=== PATIENT | female | born 1990 | race Caucasian/White ===

== ENCOUNTER 2017-05-28 10:25 | Emergency (ER) | payer SELFPAY ==
[2017-05-28 10:33] VITALS: BP 116/68
[2017-05-28] MEDS ORDERED: NORMAL SALINE 1000 ML 1,000 ML IV ONE (11:41)
[2017-05-28] MEDS ORDERED: ONDANSETRON HCL INJ/PF 4 MG/2 ML SDV IV ONE (11:41)
--- NOTE | 2017-05-28 11:43 | ER Document Report ---
ED Syncope and Near Syncope - General Chief Complaint: Fainting Stated Complaint: COUGH Time Seen by Provider: 05/28/17 10:58 Mode of Arrival: Ambulatory Information source: Patient Notes: Presents complaining of cough for the past 10 days. Patient states that she got up this morning felt a little dizzy, started to cough and then passed out. Patient states that after she woke up she vomited one time. Patient does report fever of 1042 days ago but denies any fever since then. Patient denies any recent immobilization, travel, history of DVT or PE. Complains of headache pain only with coughing. Patient denies any headache pain at present. TRAVEL OUTSIDE OF THE [place] IN LAST 30 DAYS: No - HPI Patient complains to provider of: Fainting Episode witnessed (by whom): No Symptoms prior to episode: Fever - Physical, Nausea/vomiting. No: Abdominal pain, Back pain, Chest pain, Diarrhea Position/Activity at time of episode: Standing Quality of pain: Achy Pain Level: 3 Context: Lost consciousness. denies: Recent seizures, Recent travel Current symptoms: Fever - 2 days ago, Headache - only with coughing, Vomiting. denies: Back pain, Chest pain, Chills Similar symptoms previously: Yes Recently seen / treated by doctor: No - Related Data Allergies/Adverse Reactions: No Known Allergies Allergy (Verified 05/28/17 10:31) Past Medical History - General Information source: Patient - Social History Smoking Status: Never Smoker Frequency of alcohol use: None Drug Abuse: None Occupation: beach attendant Family History: Reviewed & Not Pertinent - Medical History Medical History: Negative - Past Medical History Cardiac Medical History: Denies: Hx DVT, Hx Pulmonary Embolism Renal/ Medical History: Denies: Hx Peritoneal Dialysis Past Surgical History: Reports: Hx Gynecologic Surgery - LEEP procedure Review of Systems - Review of Systems Constitutional: Fever - 2 days ago EENT: No symptoms reported Cardiovascular: Syncope. denies: Chest pain Respiratory: Cough, Sputum Gastrointestinal: Nausea, Vomiting. denies: Abdominal pain Genitourinary: No symptoms reported. denies: Dysuria Female Genitourinary: No symptoms reported Musculoskeletal: No symptoms reported. denies: Back pain Skin: No symptoms reported Hematologic/Lymphatic: No symptoms reported Neurological/Psychological: Headaches - only with coughing Physical Exam - Vital signs Vitals: Temp Pulse Resp BP Pulse Ox 98.6 F 77 14 116/68 99 08/03/17 10:31 05/28/17 10:31 05/28/17 10:31 05/28/17 10:31 05/28/17 10:31 - General General appearance: Appears well, Alert In distress: None - HEENT Head: Normocephalic, Atraumatic Eyes: Normal Conjunctiva: Normal Eyelashes: Normal Ears: Normal External canal: Normal Tympanic membrane: Normal Nasal: Normal Mouth/Lips: Normal Mucous membranes: Normal Pharynx: Normal. No: Exudate, Potential airway comprom. Neck: Normal, Supple. No: Lymphadenopathy - Respiratory Respiratory status: No respiratory distress Chest status: Nontender Breath sounds: Nonproductive cough, Rhonchi - clears with cough Chest palpation: Normal - Cardiovascular Rhythm: Regular Heart sounds: S1 appreciated, S2 appreciated Murmur: No - Back Back: Normal, Nontender - Extremities General upper extremity: Normal inspection, Normal ROM General lower extremity: Normal inspection, Normal ROM - Neurological Neuro grossly intact: Yes Cognition: Normal Moshe Coma Scale Eye Opening: Spontaneous Moshe Coma Scale Verbal: Oriented [place] Coma Scale Motor: Obeys Commands Moshe Coma Scale Total: 15 - Psychological Associated symptoms: Normal affect, Normal mood - Skin Skin Temperature: Warm Skin Moisture: Dry Course - Re-evaluation Re-evalutation: 05/28/17 13:01 Spoke with poison control regarding patient's use of anavar (anabolic steroid) presentation with complaint of syncope. States that this should not cause syncope and that we should look for other causes 05/28/17 14:[address] Lou regarding patient presentation and diagnostic evaluation. Agrees with discharge plan of care. - Vital Signs Vital signs: Temp Pulse Resp BP Pulse Ox 98.6 F 77 14 116/68 99 05/28/17 10:31 05/28/17 10:31 05/28/17 11:42 05/28/17 10:31 05/28/17 10:31 - Laboratory Result Diagrams: 05/28/17 12:05 05/28/17 12:05 Laboratory results interpreted by me: 05/28/17 05/28/17 12:05 12:05 WBC 11.2 H MCV 98 H Absolute Neutrophils 8.6 H Urine Bilirubin SMALL H Labs- Entire Visit 05/28/17 05/28/17 05/28/17 12:05 12:05 12:05 WBC 11.2 H RBC 4.43 Hgb 14.7 Hct 43.4 MCV 98 H MCH 33.3 MCHC 34.0 RDW 12.5 Plt Count 210 Seg Neutrophils % 76.5 Lymphocytes % 13.3 Monocytes % 6.5 Eosinophils % 3.3 Basophils % 0.4 Absolute Neutrophils 8.6 H Absolute Lymphocytes 1.5 Absolute Monocytes 0.7 Absolute Eosinophils 0.4 Absolute Basophils 0.0 D-Dimer 0.28 Sodium 142.0 Potassium 4.0 Chloride 104 Carbon Dioxide 28 Anion Gap 10 BUN 15 Creatinine 0.86 Est GFR ( Amer) > 60 Est GFR (Non-Af Amer) > 60 Glucose 87 Calcium 9.3 Total Bilirubin 0.4 Direct Bilirubin 0.3 Indirect Bilirubin Not Reportable Neonat Total Bilirubin Not Reportable AST 34 ALT 44 Alkaline Phosphatase 74 Total Protein 7.2 Albumin 4.2 Serum HCG, Qual Urine Color Urine Appearance Urine pH Ur Specific Howard Urine Protein Urine Glucose (UA) Urine Ketones Urine Blood Urine Nitrite Urine Bilirubin Urine Urobilinogen Ur Leukocyte Esterase Urine WBC (Auto) Urine RBC (Auto) Squamous Epi Cells Auto Amorphous Sediment Auto Urine Mucus (Auto) Urine Ascorbic Acid Urine Opiates Screen Urine Methadone Screen Ur Barbiturates Screen Ur Phencyclidine Scrn Ur Amphetamines Screen U Benzodiazepines Scrn Urine Cocaine Screen U Marijuana (THC) Screen 05/28/17 05/28/17 05/28/17 12:05 12:05 12:05 WBC RBC Hgb Hct MCV MCH MCHC RDW Plt Count Seg Neutrophils % Lymphocytes % Monocytes % Eosinophils % Basophils % Absolute Neutrophils Absolute Lymphocytes Absolute Monocytes Absolute Eosinophils Absolute Basophils D-Dimer Sodium Potassium Chloride Carbon Dioxide Anion Gap BUN Creatinine Est GFR ( Amer) Est GFR (Non-Af Amer) Glucose Calcium Total Bilirubin Direct Bilirubin Indirect Bilirubin Neonat Total Bilirubin AST ALT Alkaline Phosphatase Total Protein Albumin Serum HCG, Qual NEGATIVE Urine Color YELLOW Urine Appearance SLIGHTLY-CLOUDY Urine pH 6.0 Ur Specific Howard 1.033 Urine Protein NEGATIVE Urine Glucose (UA) NEGATIVE Urine Ketones NEGATIVE Urine Blood NEGATIVE Urine Nitrite NEGATIVE Urine Bilirubin SMALL H Urine Urobilinogen NEGATIVE Ur Leukocyte Esterase NEGATIVE Urine WBC (Auto) 4 Urine RBC (Auto) 2 Squamous Epi Cells Auto 6 Amorphous Sediment Auto TRACE Urine Mucus (Auto) RARE Urine Ascorbic Acid NEGATIVE Urine Opiates Screen NEGATIVE Urine Methadone Screen NEGATIVE Ur Barbiturates Screen NEGATIVE Ur Phencyclidine Scrn NEGATIVE Ur Amphetamines Screen NEGATIVE U Benzodiazepines Scrn NEGATIVE Urine Cocaine Screen NEGATIVE U Marijuana (THC) Screen NEGATIVE 05/28/17 14:07 - Diagnostic Test Radiology reviewed: Reports reviewed - EKG Interpretation by Me EKG shows normal: Sinus rhythm Rate: Normal Rhythm: Arrthymia Discharge - Discharge Clinical Impression: Syncope Qualifiers: Syncope type: unspecified Qualified Code(s): R55 - Syncope and collapse Upper respiratory infection Qualifiers: URI type: unspecified URI Qualified Code(s): J06.9 - Acute upper respiratory infection, unspecified Condition: Stable Disposition: HOME, SELF-CARE Instructions: Acetaminophen, Upper Respiratory Illness ([facility]), Syncopal Episode ([facility]) Additional Instructions: Return immediately for any new or worsening symptoms Followup with your primary care provider, at [facility], call tomorrow to make a followup appointment Follow-up with frozen meat cutter for further evaluation, call today for an appointment. They can set you up with a holter monitor. Avoid use of heavily caffeinated/stimulant drinks Prescriptions: Albuterol Sulfate [Ventolin Hfa] 2 puff IH Q4HP PRN #17 gm PRN Reason: Benzonatate [Tessalon Perle 100 mg Capsule] 100 mg PO Q8HP PRN #20 cap PRN Reason: Naproxen [Naprosyn 250 Nmg Tablet] 1 tab PO BID #14 tablet Ondansetron HCl [Zofran 4 mg Tablet] 1 - 2 tab PO Q6 PRN #15 tablet PRN Reason: Referrals: MIGDALIA VICTORIA MD [ACTIVE STAFF] - Follow up tomorrow
[2017-05-28 12:18] LABS: ABSOLUTE EOSINOPHILS # (AUTO) 0.4 10^3/uL (0.0-0.6); ABSOLUTE LYMPHOCYTES (AUTO) 1.5 10^3/uL (0.5-4.7); ABSOLUTE MONOCYTES (AUTO) 0.7 10^3/uL (0.1-1.4); ABSOLUTE NEUT (AUTO) 8.6 10^3/uL (1.7-8.2); BASOPHILS % (AUTO) 0.4 % (0-2); EOSINOPHILS % (AUTO) 3.3 % (0-6); HEMATOCRIT 43.4 % (36.0-47.0); HEMOGLOBIN 14.7 g/dL (12.0-15.5); HGB HCT DIFFERENCE 0.7; LYMPHOCYTES % (AUTO) 13.3 % (13-45); MEAN CORPUSCULAR HEMOGLOBIN 33.3 pg (27.0-33.4); MEAN CORPUSCULAR VOLUME 98 fl (80-97); MONOCYTES % (AUTO) 6.5 % (3-13); RED BLOOD COUNT 4.43 10^6/uL (3.72-5.28); RED CELL DISTRIBUTION WIDTH 12.5 % (11.5-14.0); SEGMENTED NEUTROPHILS % (AUTO) 76.5 % (42-78); WHITE BLOOD COUNT 11.2 10^3/uL (4.0-10.5)
[2017-05-28 12:35] LABS: AMORPHOUS SEDIMENT,URINE TRACE /HPF; APPEARANCE,URINE SLIGHTLY-CLOUDY; BILIRUBIN,URINE SMALL (NEGATIVE); GLUCOSE, URINE NEGATIVE (NEGATIVE); KETONES,URINE NEGATIVE (NEGATIVE); LEUKOCYTE ESTERASE,URINE NEGATIVE (NEGATIVE); NITRITE,URINE NEGATIVE (NEGATIVE); PROTEIN,URINE NEGATIVE (NEGATIVE); URINE SPECIFIC GRAVITY 1.033; UROBILINOGEN,URINE NEGATIVE mg/dL (<2.0)
[2017-05-28 12:42] LABS: ALANINE AMINOTRANSFERASE 44 U/L (9-52); ALBUMIN 4.2 g/dL (3.5-5.0); ALKALINE PHOSPHATASE 74 U/L (38-126); ANION GAP 10 (5-19); ASPARTATE AMINO TRANSFERASE 34 U/L (14-36); BILIRUBIN,DIRECT 0.3 mg/dL (0.0-0.4); BILIRUBIN,TOTAL 0.4 mg/dL (0.2-1.3); BLOOD UREA NITROGEN 15 mg/dL (7-20); CALCIUM 9.3 mg/dL (8.4-10.2); CARBON DIOXIDE 28 mmol/L (22-30); CHLORIDE 104 mmol/L (98-107); CREATININE RESULT 0.86 mg/dL (0.52-1.25); GLUCOSE 87 mg/dL (75-110); TOTAL PROTEIN 7.2 g/dL (6.3-8.2)
--- NOTE | 2017-05-28 12:43 | RADIOLOGY REPORT (SQ) ---
EXAM DESCRIPTION: CHEST PA/LAT COMPLETED DATE/TIME: 05/28/2017 12:32 pm REASON FOR STUDY: cough COMPARISON: None. EXAM PARAMETERS: NUMBER OF VIEWS: two views TECHNIQUE: Digital Frontal and Lateral radiographic views of the chest acquired. RADIATION DOSE: NA LIMITATIONS: none FINDINGS: LUNGS AND PLEURA: No opacities, masses or pneumothorax. No pleural effusion. MEDIASTINUM AND HILAR STRUCTURES: No masses or contour abnormalities. HEART AND VASCULAR STRUCTURES: Heart normal size. No evidence for failure. BONES: No acute findings. HARDWARE: None in the chest. OTHER: No other significant finding. IMPRESSION: NO SIGNIFICANT RADIOGRAPHIC FINDING IN THE CHEST. TECHNICAL DOCUMENTATION: JOB ID: [id number] [employer]- All Rights Reserved
[2017-05-28 12:50] LABS: URINE BARBITURATES SCREEN NEGATIVE; URINE METHADONE SCREEN NEGATIVE; URINE OPIATES LOW NEGATIVE; URINE PHENCYCLIDINE SCREEN NEGATIVE
--- NOTE | 2017-05-28 13:03 | EKG REPORT ---
SEVERITY:- OTHERWISE NORMAL ECG - SINUS ARRHYTHMIA, RATE 60-83 : Confirmed by: Jacques Titus MD 28-May-2017 13:02:19
== END 2017-05-28 14:37 | disposition home or self-care (01) ==
LOC: ER 10:25
DX: J06.9 Acute upper respiratory infection, unspecified (principal); R55 Syncope and collapse; R05 Cough; R42 Dizziness and giddiness; R51 Headache
CPT/HCPCS: 93005; 99284; 96361; 96374; 36415; 87040; 84703; 85025; 80053; 81001; 80307; 85379; 71020; 93010; J2405; J7030

== ENCOUNTER 2018-07-18 05:44 | Emergency (ER) | payer SELFPAY ==
[2018-07-18 08:05] LABS: APPEARANCE,URINE SLIGHTLY-CLOUDY; BILIRUBIN,URINE NEGATIVE (NEGATIVE); COLOR,URINE YELLOW; GLUCOSE, URINE NEGATIVE (NEGATIVE); KETONES,URINE NEGATIVE (NEGATIVE); LEUKOCYTE ESTERASE,URINE NEGATIVE (NEGATIVE); NITRITE,URINE NEGATIVE (NEGATIVE); PROTEIN,URINE NEGATIVE (NEGATIVE); URINE SPECIFIC GRAVITY 1.011; UROBILINOGEN,URINE NEGATIVE mg/dL (<2.0)
[2018-07-18] MEDS ORDERED: KETOROLAC TROMETHAMINE INJ/PF 30 MG/1 ML SDV IV ONE (09:12)
[2018-07-18 09:57] LABS: ABSOLUTE EOSINOPHILS # (AUTO) 0.2 10^3/uL (0.0-0.6); ABSOLUTE LYMPHOCYTES (AUTO) 2.4 10^3/uL (0.5-4.7); ABSOLUTE MONOCYTES (AUTO) 0.4 10^3/uL (0.1-1.4); ABSOLUTE NEUT (AUTO) 2.5 10^3/uL (1.7-8.2); BASOPHILS % (AUTO) 0.9 % (0-2); EOSINOPHILS % (AUTO) 4.1 % (0-6); HEMATOCRIT 41.4 % (36.0-47.0); HEMOGLOBIN 14.2 g/dL (12.0-15.5); LYMPHOCYTES % (AUTO) 43.5 % (13-45); MEAN CORPUSCULAR HEMOGLOBIN 33.1 pg (27.0-33.4); MEAN CORPUSCULAR HGB CONC 34.4 g/dL (32.0-36.0); MEAN CORPUSCULAR VOLUME 96 fl (80-97); MONOCYTES % (AUTO) 6.9 % (3-13); PLATELET COUNT 209 10^3/uL (150-450); RED CELL DISTRIBUTION WIDTH 12.3 % (11.5-14.0); SEGMENTED NEUTROPHILS % (AUTO) 44.6 % (42-78); TOTAL CELLS COUNTED % (AUTO) 100 %; WHITE BLOOD COUNT 5.5 10^3/uL (4.0-10.5)
[2018-07-18 09:58] LABS: BACTERIA (WET MOUNT) 4+ BACTERIA SEEN; EPITHELIALS (WET MOUNT) 4+ EPITHELIALS SEEN; RBCS (WET MOUNT) NO RBCS SEEN; T.VAGINALIS (WET MOUNT) NO TRICHOMONAS SEEN; WBCS (WET MOUNT) 2+ WBCS SEEN; YEAST (WET MOUNT) NO YEAST SEEN
[2018-07-18 10:15] LABS: ALANINE AMINOTRANSFERASE 40 U/L (9-52); ALKALINE PHOSPHATASE 57 U/L (38-126); ANION GAP 7 (5-19); ASPARTATE AMINO TRANSFERASE 23 U/L (14-36); BILIRUBIN,DIRECT 0.4 mg/dL (0.0-0.4); BILIRUBIN,TOTAL 0.5 mg/dL (0.2-1.3); BLOOD UREA NITROGEN 11 mg/dL (7-20); CALCIUM 9.5 mg/dL (8.4-10.2); CARBON DIOXIDE 27 mmol/L (22-30); CHLORIDE 105 mmol/L (98-107); GLUCOSE 76 mg/dL (75-110); POTASSIUM 4.3 mmol/L (3.6-5.0); SODIUM 139.2 mmol/L (137-145); TOTAL PROTEIN 6.6 g/dL (6.3-8.2)
[2018-07-18 12:04] LABS: CHLAM PCR NOT DETECTED (NOT DETECT); GON PCR NOT DETECTED (NOT DETECT)
--- NOTE | 2018-07-18 15:37 | RADIOLOGY REPORT (SQ) ---
EXAM DESCRIPTION: U/S NON OB PEL TV W/DOPPLER COMPLETED DATE/TIME: 07/18/2018 3:18 pm REASON FOR STUDY: right pelvic pain COMPARISON: None. TECHNIQUE: Dynamic and static grayscale images acquired of the pelvis via transvaginal approach and recorded on PACS. Additional selected color Doppler and spectral images recorded. LIMITATIONS: None. FINDINGS: UTERUS: Contour normal. No mass. Uterus is 8 x 5 x 4.5 cm in size. ENDOMETRIAL STRIPE: No focal or generalized thickening. No masses. IUD in the uterus in good positio desmond. CERVIX: No nabothian cysts. Closed, 2.5 cm in length. RIGHT OVARY AND DOPPLER: Normal size, 3.5 x 2.1 x 2 cm in size. No worrisome masses. Normal arterial vascular flow without evidence for torsion. LEFT OVARY AND DOPPLER: Normal size, 3.5 x 1.9 x 1.5 cm in size. No worrisome masses. Normal arterial vascular flow without evidence for torsion. FREE FLUID: None noted. OTHER: No other significant finding. IMPRESSION: NORMAL TRANSVAGINAL PELVIC ULTRASOUND. TECHNICAL DOCUMENTATION: JOB ID: [id number] [employer]- All Rights Reserved Rev-03/12 Reading location - IP/workstation name: [email or web address]
[2018-07-18 15:41] VITALS: BP 94/60
--- NOTE | 2018-07-18 15:51 | ER Document Report ---
ED GI/ - General Chief Complaint: Vaginal Pain Stated Complaint: PELVIC PAIN Time Seen by Provider: 07/18/18 08:09 Mode of Arrival: Ambulatory Information source: Patient Notes: Patient is a 27-year-old female comes emergency complaining of suprapubic pelvic pain. Patient states that she had an IUD placed approximately 1 year ago and she went to the health department last week and she was told by the health department that they could not see the string and therefore they felt like she needed to come to the ER and have IUD removed. Patient states that the discomfort and pain started about 2 weeks ago and she feels is from the irritation of the IUD. She denies any nausea vomiting diarrhea. She denies any dysuria no dyspareunia because she states she is not sexually active. Patient denies any other medical problems. TRAVEL OUTSIDE OF THE [place] IN LAST 30 DAYS: No - HPI Patient complains to provider of: Pelvic pain Onset: Other - 2 weeks ago Timing/Duration: Sudden Quality of pain: Fullness, Pressure Severity at maximum: Moderate Severity in ED: Mild Pain Level: 1 Location: Suprapubic, Vaginal Menstrual period history: Abnormal LMP: Patient states she has been having some irregularly periods ever since that Sexual history: Inactive Associated symptoms: denies: Dysuria Exacerbated by: Denies Relieved by: Denies Similar symptoms previously: Yes Recently seen / treated by doctor: Yes - Related Data Allergies/Adverse Reactions: No Known Allergies Allergy (Verified 05/28/17 10:31) Past Medical History - General Information source: Patient - Social History Smoking Status: Never Smoker Cigarette use (# per day): No Chew tobacco use (# tins/day): No Smoking Education Provided: No Frequency of alcohol use: None Drug Abuse: None Lives with: Alone Family History: Reviewed & Not Pertinent Patient has suicidal ideation: No Patient has homicidal ideation: No - Past Medical History Cardiac Medical History: Denies: Hx DVT, Hx Pulmonary Embolism Renal/ Medical History: Denies: Hx Peritoneal Dialysis Past Surgical History: Reports: Hx Gynecologic Surgery - LEEP procedure Review of Systems - Review of Systems Constitutional: No symptoms reported EENT: No symptoms reported Cardiovascular: No symptoms reported Respiratory: No symptoms reported Gastrointestinal: No symptoms reported Genitourinary: No symptoms reported Female Genitourinary: Irregular period Musculoskeletal: No symptoms reported Skin: No symptoms reported Hematologic/Lymphatic: No symptoms reported Neurological/Psychological: No symptoms reported -: Yes All other systems reviewed and negative Physical Exam - Vital signs Vitals: Temp Pulse Resp BP Pulse Ox 97.7 F 83 18 112/75 100 07/18/18 05:48 07/18/18 05:48 07/18/18 05:48 07/18/18 05:48 07/18/18 05:48 Interpretation: Normal - Notes Notes: Healthy-appearing 27-year-old no apparent distress - General General appearance: Appears well, Alert - HEENT Head: Normocephalic, Atraumatic Eyes: Normal Conjunctiva: Normal Pharynx: Normal Neck: Normal - Respiratory Respiratory status: No respiratory distress Chest status: Nontender Breath sounds: Normal. No: Rales, Rhonchi, Stridor, Wheezing Chest palpation: Normal - Cardiovascular Rhythm: Regular Heart sounds: Normal auscultation Murmur: No - Abdominal Inspection: Normal Distension: No distension Bowel sounds: Normal Tenderness: Nontender, Other - Examination of the abdomen shows that there is no tenderness specifically no periumbilical tenderness to palpation. Patient's right lower quad tenderness is more lateral and inferior to the umbilicus. It is more adnexal then it is appendix presentation.. No: McBurney's point, Duval 's sign, Guarding, Rebound Organomegaly: No organomegaly - Genitourinary External exam: Normal Speculum exam: Normal, Cervix closed, Vaginal discharge Vaginal bleeding: None Bimanuel exam: Normal, Adnexal tenderness, Other - Pelvic exam shows external genitalia to be normal in appearance. There is no blood seen externally. Vaginal tract also appears very normal in its mucosa moisture. Cervix is anterior and appears normal shape and there does not appear to be any desquamation of the skin around the office. The eyes is closed. There is no discharge coming from that area either. There is a whitish discharge that has no smell to it that is encompassing the cervix and surrounding area. It is thick mucoid but has no smell. Patient is nontender on cervical motion tenderness on bimanual. There is some right-sided adnexal tenderness to palpation. - Extremities General upper extremity: Normal inspection, Nontender, Normal ROM, Normal strength General lower extremity: Normal inspection, Nontender, Normal ROM, Normal strength - Neurological Neuro grossly intact: Yes Cognition: Normal Orientation: AAOx4 Moshe Coma Scale Eye Opening: Spontaneous Moshe Coma Scale Verbal: Oriented Moshe Coma Scale Motor: Obeys Commands [place] Coma Scale Total: 15 Speech: Normal - Skin Skin Temperature: Warm Skin Moisture: Dry Skin Color: Normal Course - Vital Signs Vital signs: Temp Pulse Resp BP Pulse Ox 98.5 F 55 L 18 94/60 L 98 07/18/18 15:37 07/18/18 15:37 07/18/18 15:37 07/18/18 15:37 07/18/18 15:37 - Laboratory Result Diagrams: 07/18/18 09:30 07/18/18 09:30 Discharge - Discharge Clinical Impression: Pelvic pain IUD strings lost Qualifiers: Encounter type: initial encounter Qualified Code(s): T83.32XA - Displacement of intrauterine contraceptive device, initial encounter Condition: Stable Disposition: HOME, SELF-CARE Instructions: Pelvic Pain ([facility]) Additional Instructions: At this time I cannot specifically tell you where your discomfort is coming from. It still possible that the IUD is causing an irritation however the a ultrasound does not show this but it is still possible. He also has some tenderness around your adnexal area which is your ovarian area which may be also inflamed although again ultrasound cannot show it. At this point we are going to treat her discomfort and pain but I highly suggest that you follow-up with your PRINCIPAL QUALITY ENGINEER that placed the IUD. As I stated I was able to see the string. It is still at the opening of the office and you may want to have this removed but it has to be done by the person the placed it. Should you have any concerns or problems please return to ER for a recheck. Currently your labs are urine and all are normal. Prescriptions: Nabumetone [Relafen] 500 mg PO BID #20 tablet Referrals: NANCY NEUMANN MD [PATTIE WOOTEN] - Follow up as needed
== END 2018-07-18 16:11 | disposition home or self-care (01) ==
LOC: ER 05:44
DX: T83.32XA Displacement of intrauterine contraceptive device, initial encounter (principal); R10.2 Pelvic and perineal pain; Y76.8 Miscellaneous obstetric and gynecological devices associated with adverse incidents, not elsewhere classified; N89.8 Other specified noninflammatory disorders of vagina
CPT/HCPCS: 99284; 96374; 36415; 87210; 85025; 81025; 80053; 81001; 87491; 87591; 76830; 93976; J1885